=== PATIENT | male | born 1975 | race Caucasian/White ===

== ENCOUNTER 2019-08-02 09:59 | Emergency (ER) | payer OTHER ==
[~2019-08-02] VITALS: Ht 182.9 cm; Wt 73.0 kg
[2019-08-02] MEDS ORDERED: NAPROXEN500 MG PO (10:36)
[2019-08-02 10:44] VITALS: BP 134/92
== END 2019-08-02 10:59 | disposition home or self-care (01) | DRG 563 ==
LOC: ED 09:59
DX: S83.91XA Sprain of unspecified site of right knee, initial encounter (principal); F17.220 Nicotine dependence, chewing tobacco, uncomplicated; X50.0XXA Overexertion from strenuous movement or load, initial encounter; Y93.89 Activity, other specified; Y92.410 Unspecified street and highway as the place of occurrence of the external cause